=== PATIENT | female | born 1940 | race Caucasian/White ===

== ENCOUNTER 2017-03-10 09:21 | Outpatient (CLI) | payer MEDICARE, BC | END 2017-03-10 09:22 | disposition home or self-care (01) | LOC: BICMAMMO 09:21 | PROVIDERS: ATTEND Internal Medicine | DX: Z12.31 Encounter for screening mammogram for malignant neoplasm of breast (principal); Z80.3 Family history of malignant neoplasm of breast | CPT/HCPCS: 77063; 77067; G0202 ==

== ENCOUNTER 2018-01-15 09:32 | Outpatient (CLI) | payer MEDICARE, BC, OTHER ==
[2018-01-15] MEDS ORDERED: ISOVUE-370 76%-LOCM 1 ML ONE (10:10)
--- NOTE | 2018-01-15 12:01 | CT ---
CT ABDOMEN AND PELVIS PERFORMED WITH INTRAVENOUS CONTRAST ENHANCEMENT: History: Left lower quadrant pain. History of diverticulitis. FINDINGS: The lung bases show some chronic appearing interstitial change. The liver and spleen show no focal abnormalities. Pancreas is unremarkable. The gallbladder has been removed. Right and left adrenal glands and right and left kidneys are normal in size. There is no significant periaortic or mesenteric adenopathy. Colonic diverticulosis is noted. CT OF PELVIS PERFORMED WITH INTRAVENOUS CONTRAST ENHANCEMENT: There is moderately severe diverticular disease of the sigmoid colon but no evidence for overt divert iculitis. No adenopathy or mass. No free fluid. Appendix is not definitely visualized but no evidence for appendicitis. IMPRESSION: Colonic diverticulosis which is most severe in the sigmoid colon region. POS: [facility]
== END 2018-01-15 09:33 | disposition home or self-care (01) ==
LOC: BICCT 09:32
PROVIDERS: ATTEND Internal Medicine
DX: R10.32 Left lower quadrant pain (principal)
CPT/HCPCS: 74177

== ENCOUNTER 2018-03-14 08:30 | Outpatient (CLI) | payer MEDICARE, BC | END 2018-03-14 08:31 | disposition home or self-care (01) | LOC: BICMAMMO 08:30 | PROVIDERS: ATTEND Internal Medicine | DX: Z12.31 Encounter for screening mammogram for malignant neoplasm of breast (principal); R92.1 Mammographic calcification found on diagnostic imaging of breast; Z80.3 Family history of malignant neoplasm of breast | CPT/HCPCS: 77063; 77067 ==

== ENCOUNTER 2018-03-29 14:57 | Outpatient (CLI) | payer MEDICARE, BC, OTHER ==
--- NOTE | 2018-03-29 15:44 | RAD ---
RIGHT KNEE 4 VIEWS: INDICATION: Pain. FINDINGS: There is degenerative change of the right knee preferentially involving the medial compartment. Douglas drocalcinosis is present. No acute fracture or joint capsular distention. IMPRESSION: 1. Calcium pyrophosphate dihydrate deposition disease. 2. No acute fracture. POS: [facility]
--- NOTE | 2018-03-29 15:45 | RAD ---
LEFT KNEE 4 VIEWS: INDICATION: Pain. FINDINGS: There is degenerative change of the left knee preferentially involving the medial compartment. Chond rocalcinosis is present. There is no fracture or joint capsular distention of significance. IMPRESSION: 1. Calcium pyrophosphate dihydrate deposition disease. 2. No acute fracture. POS: [facility]
--- NOTE | 2018-03-29 15:51 | RAD ---
EXAM: CHEST PA AND LATERAL: 03/29/18 HISTORY: 75-year-old with history of dyspnea. COMPARISON: 08/26/15. FINDINGS: There is again noted to be a nodular density projected over the left mid lateral chest which is stabl e when compared to the prior 08/26/15 study. Increased linear and interstitial markings are noted bila terally with some biapical pleural thickening, evidence for stable chronic change. No confluent pneum onia or overt edema. IMPRESSION: Stable nodular density over the lateral mid left chest. Stable appearing chronic changes. Atheroscler osis of the aorta. No confluent pneumonia is suggested. Increased linear and interstitial markings bi laterally and biapical pleural thickening have a more of a chronic appearance. POS: [facility]
== END 2018-03-29 14:58 | disposition home or self-care (01) ==
LOC: BICRAD 14:57
PROVIDERS: ATTEND Internal Medicine
DX: M25.561 Pain in right knee (principal); M25.562 Pain in left knee; R05 Cough; I70.0 Atherosclerosis of aorta; R91.8 Other nonspecific abnormal finding of lung field; M11.061 Hydroxyapatite deposition disease, right knee; M11.0 Hydroxyapatite deposition disease
CPT/HCPCS: 71046

== ENCOUNTER 2018-05-30 12:41 | Outpatient (CLI) | payer MEDICARE, BC, OTHER ==
--- NOTE | 2018-05-30 13:37 | RAD ---
FOUR VIEWS RIGHT KNEE: HISTORY: Pain. COMPARISON: 03/29/2018. FINDINGS: Joint spaces are preserved. No fractures or malalignment. No joint effusion. Stable chondrocalcino sis in the lateral compartment. IMPRESSION: No significant interval change. POS: [facility]
== END 2018-05-30 12:42 | disposition home or self-care (01) ==
LOC: BICRAD 12:41
PROVIDERS: ATTEND Internal Medicine
DX: M25.561 Pain in right knee (principal); M11.861 Other specified crystal arthropathies, right knee
CPT/HCPCS: 80053; 83970; 84100; 84550; 85027; 85652; 86140

== ENCOUNTER 2018-09-28 11:22 | Outpatient (CLI) | payer MEDICARE, BC, OTHER ==
--- NOTE | 2018-09-28 12:06 | RAD ---
Lumbar spine 5 views HISTORY: Low back pain. FINDINGS: There are 5 lumbar type vertebrae. Pedicles and pars interarticularis are intact. Vertebral body heights and AP alignment are maintained. Mild leftward convex curvature. Disc space narrowing and gas disc phenomenon at the L4-5 level. Discogenic endplate changes also most pronounced at this l evel. Osteophytosis throughout the vertebral bodies and most pronounced at the lower facets. No acute fracture or dislocation. Prominent degenerative changes of the hips are partially visualized. IMPRESSION: Prominent osseous degenerative changes lumbar spine. No acute osseous abnormalities are d emonstrated.
--- NOTE | 2018-09-28 12:09 | RAD ---
Sacrum/coccyx 3 views HISTORY: Sacral pain. FINDINGS: Sacral alae are intact. No acute fracture, dislocation, or aggressive osseous erosions are apparent. IMPRESSION: No acute osseous abnormalities are demonstrated.
== END 2018-09-28 11:23 | disposition home or self-care (01) ==
LOC: BICRAD 11:22
PROVIDERS: ATTEND Internal Medicine Rheumatology
DX: M54.5 Low back pain (principal)
CPT/HCPCS: 72110; 72220

== ENCOUNTER 2019-03-19 09:45 | Outpatient (CLI) | payer MEDICARE, BC, OTHER ==
--- NOTE | 2019-03-19 11:40 | MMO ---
Bilateral MAMMO Bilat Screen [facility]. CLINICAL HISTORY: Patient is 78 years old and is seen for screening. The patient has no family history of breast cancer. The patient has no personal history of cancer. VIEWS: The views performed were: bilateral craniocaudal with tomosynthesis and bilateral mediolateral oblique with tomosynthesis. FILMS COMPARED: The present examination has been compared to prior imaging studies performed at [facility] on 02/19/2015, 02/23/2016, 03/10/2017 and 03/14/2018. This study has been interpreted with the assistance of computer-aided detection. MAMMOGRAM FINDINGS: There are scattered fibroglandular densities. Finding 1: There is a new focal asymmetry seen in the MLO view only seen in the posterior upper region of the right breast. Finding 2: There are benign appearing calcifications seen in both breasts. IMPRESSION: FINDING 1: NEW FOCAL ASYMMETRY IN THE RIGHT BREAST REQUIRES ADDITIONAL EVALUATION. AN ULTRASOUND EXAM IS RECOMMENDED IF NEEDED. RECOMMEND DIAGNOSTIC MAMMOGRAM. FINDING 2: CALCIFICATIONS IN BOTH BREASTS ARE BENIGN. THE RESULTS OF THIS EXAM WERE SENT TO THE PATIENT. ACR BI-RADS Category 0 - Incomplete: Need additional imaging evaluation. [facility] will notify the patient of the need for additional imaging services. MAMMOGRAPHY NOTE: 1. A negative mammogram report should not delay a biopsy if a dominant of clinically suspicious mass is present. 2. Approximately 10% to 15% of breast cancers are not detected by mammography. 3. Adenosis and dense breasts may obscure an underlying neoplasm. Reported by: CHERIE OKEEFE MD Electonically Signed: [id number]
== END 2019-03-19 09:46 | disposition home or self-care (01) ==
LOC: BICMAMMO 09:45
PROVIDERS: ATTEND Internal Medicine
DX: Z12.31 Encounter for screening mammogram for malignant neoplasm of breast (principal); N64.89 Other specified disorders of breast; R92.1 Mammographic calcification found on diagnostic imaging of breast
CPT/HCPCS: 77063; 77067

== ENCOUNTER 2019-03-28 12:33 | Outpatient (CLI) | payer MEDICARE, BC, OTHER ==
--- NOTE | 2019-03-28 13:21 | MMO ---
Right Breast MAMMO Unilat Diag [facility]. CLINICAL HISTORY: Patient is 78 years old and is seen for additional evaluation requested at current screening. The patient has no family history of breast cancer. The patient has no personal history of cancer. VIEWS: The views performed were: right mediolateral oblique spot compression with tomosynthesis and right mediolateral with tomosynthesis. FILMS COMPARED: The present examination has been compared to prior imaging studies performed at [facility] on 03/10/2017, 03/14/2018, 03/19/2019 and 03/28/2019. This study has been interpreted with the assistance of computer-aided detection. MAMMOGRAM FINDINGS: There are scattered fibroglandular densities. There is a focal asymmetry seen in the right breast at 12 o'clock. This persists on the additional imaging. No sonographic abnormality is evident in this region. IMPRESSION: FOCAL ASYMMETRY IN THE RIGHT BREAST IS PROBABLY BENIGN. FOLLOW-UP IN 6 MONTHS IS RECOMMENDED. THE RESULTS OF THIS EXAM WERE SENT TO THE PATIENT. ACR BI-RADS Category 3 - Probably benign finding - short interval follow-up suggested. [facility] will notify the patient of the need for additional imaging services. MAMMOGRAPHY NOTE: 1. A negative mammogram report should not delay a biopsy if a dominant of clinically suspicious mass is present. 2. Approximately 10% to 15% of breast cancers are not detected by mammography. 3. Adenosis and dense breasts may obscure an underlying neoplasm. Reported by: OSCAR BRO MD Electonically Signed: [id number]
--- NOTE | 2019-03-28 13:39 | ULT ---
LIMITED RIGHT BREAST ULTRASOUND: DATE: 03/28/2019. PROVIDED CLINICAL HISTORY: Abnormal mammogram. FINDINGS: Limited sonographic interrogation was performed of the right breast at the 12 o'clock position in the region of mammographic concern. No sonographic abnormality to correlate with the mammogram finding is evident. Simple-appearing cysts are seen measuring 2-3 mm. IMPRESSION: BIRADS category 3 - probably benign findings. No sonographic abnormality is evident for new focal as ymmetry on the mammogram. Six-month followup diagnostic right mammogram only is recommended for furt her evaluation. POS: [facility]
== END 2019-03-28 12:34 | disposition home or self-care (01) ==
LOC: BICMAMMO 12:33
PROVIDERS: ATTEND Internal Medicine
DX: R92.2 Inconclusive mammogram (principal); N64.89 Other specified disorders of breast
CPT/HCPCS: 76642; 77065; G0279

== ENCOUNTER 2019-09-30 10:17 | Outpatient (CLI) | payer MEDICARE, BC, OTHER ==
--- NOTE | 2019-09-30 10:56 | MMO ---
Right Breast MAMMO Unilat Diag [facility]. CLINICAL HISTORY: Patient is 79 years old and is seen for diagnostic exam. The patient has no family history of breast cancer. The patient has no personal history of cancer. VIEWS: The views performed were: right craniocaudal with tomosynthesis; right mediolateral oblique with tomosynthesis; and right mediolateral with tomosynthesis. FILMS COMPARED: The present examination has been compared to prior imaging studies performed at [facility] on 03/14/2018, 03/19/2019 and 03/28/2019. This study has been interpreted with the assistance of computer-aided detection. MAMMOGRAM FINDINGS: The breast is heterogeneously dense, which could obscure a lesion on mammography. There are no suspicious masses, suspicious calcifications, or new areas of architectural distortion. The asymmetry seen at prior mammography does not persist. IMPRESSION: THERE IS NO MAMMOGRAPHIC EVIDENCE OF MALIGNANCY. THE PATIENT IS DUE FOR ANNUAL BILATERAL SCREENING IN SIX MONTHS. A ROUTINE FOLLOW-UP MAMMOGRAM IN 6 MONTHS IS RECOMMENDED. THE RESULTS OF THIS EXAM WERE SENT TO THE PATIENT. ACR BI-RADS Category 1 - Negative MAMMOGRAPHY NOTE: 1. A negative mammogram report should not delay a biopsy if a dominant of clinically suspicious mass is present. 2. Approximately 10% to 15% of breast cancers are not detected by mammography. 3. Adenosis and dense breasts may obscure an underlying neoplasm. Reported by: OSCAR BRO MD Electonically Signed: [id number]
== END 2019-09-30 10:18 | disposition home or self-care (01) ==
LOC: BICMAMMO 10:17
PROVIDERS: ATTEND Internal Medicine
DX: R92.8 Other abnormal and inconclusive findings on diagnostic imaging of breast (principal)
CPT/HCPCS: 77065; G0279

== ENCOUNTER 2020-04-07 09:45 | Outpatient (CLI) | payer MEDICARE, BC, OTHER ==
--- NOTE | 2020-04-07 13:20 | MMO ---
Bilateral MAMMO Bilat Screen [facility]. CLINICAL HISTORY: Patient is 79 years old and is seen for screening. The patient has no family history of breast cancer. The patient has no personal history of cancer. VIEWS: The views performed were: bilateral craniocaudal with tomosynthesis and bilateral mediolateral oblique with tomosynthesis. FILMS COMPARED: The present examination has been compared to prior imaging studies performed at [facility] on 03/19/2019, 03/28/2019 and 09/30/2019. This study has been interpreted with the assistance of computer-aided detection. MAMMOGRAM FINDINGS: The breasts are heterogeneously dense, which could obscure a lesion on mammography. Benign calcifications are noted bilaterally. There are no suspicious masses, suspicious calcifications, or new areas of architectural distortion. IMPRESSION: THERE IS NO MAMMOGRAPHIC EVIDENCE OF MALIGNANCY. A ROUTINE FOLLOW-UP MAMMOGRAM IN 1 YEAR IS RECOMMENDED. THE RESULTS OF THIS EXAM WERE SENT TO THE PATIENT. ACR BI-RADS Category 2 - Benign finding MAMMOGRAPHY NOTE: 1. A negative mammogram report should not delay a biopsy if a dominant of clinically suspicious mass is present. 2. Approximately 10% to 15% of breast cancers are not detected by mammography. 3. Adenosis and dense breasts may obscure an underlying neoplasm. Reported by: LLOYD CERVANTES MD Electonically Signed: [id number]
== END 2020-04-07 09:46 | disposition home or self-care (01) ==
LOC: BICMAMMO 09:45
PROVIDERS: ATTEND Internal Medicine
DX: Z12.31 Encounter for screening mammogram for malignant neoplasm of breast (principal)
CPT/HCPCS: 77063; 77067

== ENCOUNTER 2020-05-07 11:27 | Outpatient (CLI) | payer MEDICARE, BC, OTHER ==
--- NOTE | 2020-05-07 15:37 | RAD ---
TOES RIGHT FOOT: 05/07/20 Three views. HISTORY: Injury to right fourth toe with pain. FINDINGS: There is a transverse mildly displaced and angulated fracture involving the mid shaft of the proximal phalanx of the fourth toe. IMPRESSION: Fracture proximal phalanx fourth toe. POS: [facility]
== END 2020-05-07 11:28 | disposition home or self-care (01) ==
LOC: BICRAD 11:27
PROVIDERS: ATTEND Podiatrist
DX: M79.674 Pain in right toe(s) (principal); R60.0 Localized edema; S92.511A Displaced fracture of proximal phalanx of right lesser toe(s), initial encounter for closed fracture

== ENCOUNTER 2021-04-09 10:40 | Outpatient (CLI) | payer MEDICARE, BC, OTHER | END 2021-04-09 10:41 | disposition home or self-care (01) | LOC: BICMAMMO 10:40 | PROVIDERS: ATTEND Internal Medicine | DX: Z12.31 Encounter for screening mammogram for malignant neoplasm of breast (principal) | CPT/HCPCS: 77063; 77067 ==

== ENCOUNTER 2022-05-13 09:53 | Outpatient (CLI) | payer MEDICARE, BC | END 2022-05-13 09:54 | disposition home or self-care (01) | LOC: BICMAMMO 09:53 | PROVIDERS: ATTEND Family Medicine | DX: Z12.31 Encounter for screening mammogram for malignant neoplasm of breast (principal) | CPT/HCPCS: 77063; 77067 ==

== ENCOUNTER 2023-05-22 09:55 | Outpatient (CLI) | payer MEDICARE, BC | END 2023-05-22 09:56 | disposition home or self-care (01) | LOC: BICMAMMO 09:55 | PROVIDERS: ATTEND Family Medicine | DX: Z12.31 Encounter for screening mammogram for malignant neoplasm of breast (principal); Z80.3 Family history of malignant neoplasm of breast | CPT/HCPCS: 77063; 77067 ==

== ENCOUNTER 2024-03-06 13:49 | Outpatient (CLI) | payer MEDICARE, BC | END 2024-03-06 13:50 | disposition home or self-care (01) | LOC: BICULT 13:49 | PROVIDERS: ATTEND Family Medicine | DX: R19.5 Other fecal abnormalities (principal); R10.9 Unspecified abdominal pain | CPT/HCPCS: 76700 ==